=== PATIENT | male | born 1995 | race Caucasian/White ===

== ENCOUNTER 2017-02-10 15:24 | Emergency (ER) | payer SELFPAY ==
[~2017-02-10] VITALS: Ht 177.8 cm; Wt 60.7 kg
[2017-02-10] MEDS ORDERED: CLONIDINE HCL0.1 MG PO ×2 (15:48→16:24)
[2017-02-10] MEDS ORDERED: TRAZODONE HCL50 MG PO ×2 (15:48→16:24)
[2017-02-10 16:24] VITALS: BP 141/79
== END 2017-02-10 16:30 | disposition home or self-care (01) ==
LOC: EME 15:24
DX: F11.10 Opioid abuse, uncomplicated (principal); F11.23 Opioid dependence with withdrawal; Z72.0 Tobacco use
CPT/HCPCS: 99281; 99284